=== PATIENT | female | born 2005 | race Caucasian/White ===

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

== ENCOUNTER 2024-02-16 18:30 | Outpatient (RCR) | payer OTHER, SELFPAY ==
--- NOTE | 2024-02-02 18:43 | HP.PTEVAL ---
Patient's Visit Information Visit Information Visit Information: ESAU STREET is a 18 year old F referred to Physical Therapy by Dr. Patt Eason MD with a diagnosis of dizzyness. Date of Evaluation: 02/02/24 Physical Therapist: Eugene Bradley, DPT, OCS, CSCS Visit Plan Frequency: 1x/Week Duration: 4-6 Weeks Plan: weekly x 2-6 as helpful. Pt has fairly normal vestibular exam today except dizzyness with VOR with duration. Not perfectly consistent with subjective but has had testing to rule out sinister. [place] a trial of adaptation exercises and progression if helpful. Subjective Subjective: My general doctor sent me after dizzyness with vaso vagal issues. Had negative tests of tilt table and blood tests and heart US and they were all normal. has been getting dizzy since July. Did not pass out but got clammy and vision changes, GIL, nausea, and went to ER and had anemia and treated that with now normal hemoglobin and still issues. Symptoms include dizzyness described as spinning with looking up at times and other times just lgihtheaded. Happens about every other day a few times. No pattern. Sometimes standing up or changing positionsTurning in bed might cause it for a few minutes. Never there all day. No problems before july. no reason for onset in July. Activities: pretty normal as she is generally sedentary. Done with HS since 2021. No regular exercise. Spends day reading and writing and they are no problem. Used to be worse with period but not anymore. Acclimated to it. Objective Objective: Walks I into PT normally, transfer I bed and chair. Steps reciprocal without rail. cervical and UE AROM WFL and without pain, strength UE 3+/5 without myotomal problems, sensation UE WNL to gross light touch. Good balance - B hallpike samia - roll test Oculomotor: - skew eye deviation, - ocular tilt, - head thrust, normal DVA vs SVA. no nystagmus with gaze or head shake normal pursuit and saccades VOR H 30 gives 2/10 for 30 seconds. V not bad, 60 3/10 for 40 seconds. Balance/Special Test Scores Functional Gait Assessment Score: 30 % Disability: 0 CATSIB Score (Max score 120 seconds): 120 Dizziness Score: 24 Goals Goal 1:: Abolish dizzyness for 4 days Goal Time Frame: 4-6 Weeks Goal 2:: Pt feel problem is resolved 100% Goal Time Frame: 4-6 Weeks Goal 3:: DHI score 2 or less Goal Time Frame: 4-6 Weeks Rehabilitation Potential Physical Therapy Diagnosis: dizzyness effecting comfortable confident function Rehabilitation Potential: Questionable Anticipated Interventions Patient/Client Instruction: Educate patient on: Condition and Plan of Care For the Purpose of:: To increase tolerance to activity/condition/position Comment: adaptation ex For the Purpose of:: To increase tolerance to activity/condition/position Text: Thank you for the opportunity to evaluate your patient. For Medicare and Medicare HMO plans, please review the plan of care and approve it. It will need to be FAXED BACK to us at [phone] for Medicare purposes. For Medicare only, by signing this I certify the plan of care. Please let me know if there are questions or concerns regarding this plan of care. Physician Signature: Date:
--- NOTE | 2024-05-02 16:11 | HP.PT.NRP ---
Patient Information Patient Information: ESAU STREET was seen in my office for initial evaluation on 02/02/24. The following Plan of Care was established for this patient: POC Established Initial Frequency: 1x/Week Initial Duration: 4-6 Weeks Anticipated Interventions Patient/Client Instruction: Educate patient on: Condition and Plan of Care For the Purpose of:: To increase tolerance to activity/condition/position For the Purpose of:: To increase tolerance to activity/condition/position Last Seen Last Seen: This patient was last seen in our office 02/16/24. Pertinent comments regarding their Physical therapy will appear below: Pt seen 2 visits of POC and then did not return for any further visits. I will discontinue from my care at this time. At this point I will be discontinuing this patient from physical therapy. I would be happy to see this patient again in the future if found appropriate by the physician. Thank you! Eugene Bradley, DPT, OCS, CSCS Balance/Gait/Functional tests Balance/Special Test Scores Functional Gait Assessment Score: 30 % Disability: 0 CATSIB Score (Max score 120 seconds): 120 Dizziness Score: 24
== END 2024-02-16 19:00 | disposition home or self-care (01) ==
LOC: PT 18:30
PROVIDERS: PCP Internal Medicine; Referring Provider Internal Medicine; Visit Provider Internal Medicine
DX: R42 Dizziness and giddiness (principal)
CPT/HCPCS: 97161; 97530